=== PATIENT | female | born 1960 | race Caucasian/White ===

== ENCOUNTER 2018-11-04 07:01 | Day surgery (SDC) | payer OTHER ==
[~2018-11-04] VITALS: Ht 152.4 cm; Wt 90.7 kg
[2018-11-04] MEDS ORDERED: fentaNYL 0.05 MG/ML VIAL ONE (08:52)
[2018-11-04] MEDS ORDERED: MIDAZOLAM 2 MG/2 ML VIAL ONE (08:52)
[2018-11-04] MEDS ORDERED: LIDOCAINE 2% 100 MG/5 ML UJET TP ONE (08:53)
[2018-11-04] MEDS ORDERED: MIDAZOLAM 2 MG/2 ML VIAL IVP ONE (13:05)
[2018-11-04] MEDS ORDERED: fentaNYL 0.05 MG/ML VIAL IVP ONE (13:05)
== END 2018-11-04 10:30 | disposition home or self-care (01) ==
LOC: MDS 07:01 → MMU 07:09 → MDS 10:30
PROVIDERS: ATTEND Internal Medicine Gastroenterology
DX: Z12.11 Encounter for screening for malignant neoplasm of colon (principal); K57.30 Diverticulosis of large intestine without perforation or abscess without bleeding; K21.9 Gastro-esophageal reflux disease without esophagitis; E66.9 Obesity, unspecified; Z68.41 Body mass index [BMI] 40.0-44.9, adult; Z79.899 Other long term (current) drug therapy; Z98.890 Other specified postprocedural states; Z72.89 Other problems related to lifestyle; Z86.010 Personal history of colon polyps
CPT/HCPCS: 43235; 45378; J2250; J3010